=== PATIENT | female | born 1965 | race Caucasian/White ===

== ENCOUNTER 2021-07-05 12:46 | Inpatient (IN) | payer OTHER ==
[2021-07-05] MEDS ORDERED: AMIODARONE IN DEXTROSE,ISO-OSM 360 MG/200 ML BAG IV ONE (12:55)
[2021-07-05 13:13] LABS: Absolute Lymphocytes (CBC) 2.4 K/uL (0.7-4.9); Hematocrit 38.7 % (36.0-45.0); Lymphocytes % 34.4 % (15.3-44.8); MPV 7.8 fL (7.6-11.3); RBC Red Blood Cell Count 4.05 M/uL (3.86-4.86)
[2021-07-05 13:14] LABS: Protime INR 0.91
[2021-07-05 13:35] LABS: Albumin 3.9 g/dL (3.4-5.0); Bilirubin Direct 0.1 mg/dL (0-0.2); Bilirubin Total 0.5 mg/dL (0.2-1.0); Magnesium 2.2 mg/dL (1.8-2.4); Protein, Total 7.9 g/dL (6.4-8.2)
[2021-07-05 13:36] LABS: Thyroid Stimulating Hormone 4.1 uIU/mL (0.360-3.740)
--- NOTE | 2021-07-05 13:36 | RAD REPORT ---
EXAM DESCRIPTION: RAD - Chest Single View - 07/05/2021 1:32 pm CLINICAL HISTORY: CHEST PAIN COMPARISON: CHEST SINGLE VIEW dated 02/19/2015 FINDINGS: Lines: None. Lungs: No evidence of edema or pneumonia. Pleural: No significant pleural effusions or pneumothorax. Cardiac: The heart size is within normal limits. Bones: No acute fractures. Other: IMPRESSION: No acute cardiopulmonary disease.
--- NOTE | 2021-07-05 14:21 | RAD REPORT ---
EXAM DESCRIPTION: CT - Chest For Pe Angio - 07/05/2021 2:13 pm CLINICAL HISTORY: CHEST PAIN COMPARISON: CTANGIO CHEST FOR PE dated 02/19/2015 FINDINGS: Chest Wall: No suspicious thyroid nodules or pathologic lymphadenopathy. Lungs: No acute abnormality. Pleura: No significant effusions or pneumothorax. Mediastinum/chad: No pathologic lymphadenopathy. Pulmonary arteries/Aorta: No filling defect identified. No aortic aneurysm. Heart: No significant pericardial effusion. Normal heart size. Upper abdomen: Cholecystectomy . Bones: No acute abnormality. All CT scans are performed using dose optimization technique as appropriate and may include automated exposure control or mA/KV adjustment according to patient size. IMPRESSION: Negative for pulmonary embolism. No other acute findings are present within the chest.
[2021-07-05] MEDS ORDERED: NA CHLORIDE 0.9% 1,000 ML IV SCH ×2 (15:00→18:16)
[2021-07-05] MEDS ORDERED: AMIODARONE HCL 900 MG in Dextrose 5%-Water 482 ML IV SCH (15:00)
--- NOTE | 2021-07-05 15:12 | ER ---
Nurse's Notes [facility] Name: Marilyn Harden Age: 55 yrs Sex: Female : 1965 Arrival Date: 07/05/2021 Time: 12:50 Bed 3 Private MD: Diagnosis: Ventricular tachycardia;Cardiac arrhythmia, unspecified Presentation: 07/05 13:01 Chief complaint: Patient states: Patient states she was sent to us from Dr. Wells's ap3 office for runs of v-tach. Patient denies pain at this time, however she reports shortness of breath. 13:01 Coronavirus screen: At this time, the client does not indicate any symptoms associated ap3 with coronavirus-19. Ebola Screen: No symptoms or risks identified at this time. Initial Sepsis Screen: Does the patient meet any 2 criteria? No. Patient's initial sepsis screen is negative. Does the patient have a suspected source of infection? No. Patient's initial sepsis screen is negative. Risk Assessment: Do you want to hurt yourself or someone else? Patient reports no desire to harm self or others. Onset of symptoms was July 05, 2021. 13:01 Method Of Arrival: Ambulatory ap3 13:01 Acuity: SHUN 2 ap3 Triage Assessment: 13:01 General: Appears distressed, Behavior is anxious. Pain: Denies pain. Neuro: Level of ap3 Consciousness is awake, alert, obeys commands, Oriented to person, place, time, situation, Appropriate for age Speech is normal. Cardiovascular: Reports shortness of breath, Denies chest pain. Cardiovascular: Rhythm is reported V-Tach from cardiologists office. EKG completed at the bedside-shown to provider. Respiratory: Airway is patent Respiratory effort is even, unlabored, Respiratory pattern is regular, symmetrical. 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 - Social history:: Smoking status: Patient denies any tobacco usage or history of. Screenin:54 Abuse screen: Denies threats or abuse. Nutritional screening: No deficits noted. ap3 Tuberculosis screening: No symptoms or risk factors identified. Fall Risk Fall in past 12 months (25 points). Secondary diagnosis (15 points) periods of VTach. Assessment: 13:25 Reassessment: 7 beats of VTach noted via bedside monitor at 1324. ap3 14:15 Reassessment: Patient and/or family updated on plan of care and expected duration. Pain ap3 level reassessed. Patient is alert, oriented x 3, equal unlabored respirations, skin warm/dry/pink. patients is now at the bedside. 14:22 Reassessment: 64 beats of VTach noted via bedside monitor. Provider notified and came ap3 to bedside. Patient placed on defibrillator pads and on ECG machine. Patient denies chest pain at this time, but states she feels like she is having hot flash feelings without the warmth. Vital Signs: 13:01 BP 134 / 90; Pulse 74; Pulse Ox 100% ; Weight 64.86 kg; ap3 14:17 BP 129 / 88; Pulse 64; Pulse Ox 100% ; Height 5 ft. 2 in. (157.48 cm); ap3 14:47 BP 128 / 78; Pulse 58; Pulse Ox 100% on R/A; ap3 14:54 BP 118 / 68; Pulse 57; Pulse Ox 100% ; ap3 15:55 BP 116 / 63; Pulse 58; Temp 97.8(TE); Pulse Ox 100% ; ap3 14:17 Body Mass Index 26.15 (64.86 kg, 157.48 cm) ap3 ED Course: 12:50 Patient arrived in ED. kz 12:51 Zenia [facility]orano [facility]NP-C [facility]. kb 12:51 Jayson Christianson DO is Attending Physician. kb 13:01 EKG completed in triage. Results shown to MD. ap3 13:19 Triage completed. ap3 13:31 XRAY Chest (1 view) In Process Unspecified. EDMS 13:32 Maria E Jacobo, RENEE is Primary Nurse. ap3 13:55 Arm band placed on right wrist. ap3 13:55 Patient has correct armband on for positive identification. Placed in gown. Bed in low ap3 position. Call light in reach. Side rails up X2. Adult w/ patient. electronic device monitor on. Pulse ox on. NIBP on. Door closed. Noise minimized. 14:13 CT Chest For PE Angio In Process Unspecified. EDMS 15:12 Isaiah Francis MD is Hospitalizing Provider. kb 15:54 No provider procedures requiring assistance completed. Patient admitted, IV remains in ap3 place. Administered Medications: 13:11 Drug: amiodarone 150 mg Volume: 100 ml; Route: IVPB; Infused Over: 10 mins; Site: right ap3 antecubital; 13:21 Follow up: IV Status: Completed infusion ap3 13:24 Drug: amiodarone 900 mg, D5W 500 ml {Note: started at 1321.} Route: IVPB; Rate: 1 ap3 mg/min; Site: right antecubital; 15:55 Follow up: IV Status: Infusion continued upon admission ap3 Outcome: 15:12 Decision to Hospitalize by Provider. kb 15:54 Admitted to ICU accompanied by nurse, accompanied by tech, family with patient, via ap3 stretcher, room 8, on monitor, with chart, Report called to Carlee 15:54 Condition: good 15:54 Discharge instructions given to patient, family, Instructed on the need for admit. 16:16 Patient left the ED. vg1 Signatures: Dispatcher [employer] EDMS Zenia Zamorano, MELODY LION-Maria E Peña RN RN ap3 Margret Farr RN RN vg1 Lissy Torres Corrections: (The following items were deleted from the chart) 13:29 13:24 amiodarone 900 mg, D5W 500 ml IVPB at 1 mg/min in right antecubital ap3 ap3 14:47 14:24 Reassessment: Patient and/or family updated on plan of care and expected ap3 duration. Pain level reassessed. Patient is alert, oriented x 3, equal unlabored respirations, skin warm/dry/pink. patients is now at the bedside ap3
--- NOTE | 2021-07-05 15:12 | EDPHYS ---
Physician Documentation [facility] Name: Marilyn Harden Age: 55 yrs Sex: Female : 1965 Arrival Date: 07/05/2021 Time: 12:50 Bed 3 Private MD: ED Physician Jayson Christianson HPI: 07/05 16:17 This 55 yrs old Female presents to ER via Ambulatory with complaints of Quill Fixer kb advised to be seen. 16:17 Pt reports she went to Dr Wells's office for a follow up and he sent her here. Pt kb denies any chest pain or palpitations. States she has shortness of breath that has been ongoing since she had COVID in May, but nothing new. . Onset: The symptoms/episode began/occurred today. The patient has not experienced similar symptoms in the past. The patient has been recently seen by a physician: Dr. Wells earlier today, with similar presenting complaints, and was sent to the [facility] Emergency Department for further evaluation. Dr Wells called prior to pt's arrival requesting cardiac workup, TSH, CT chest PE and amiodarone drip due to frequent PVCs and runs of V Tach in office. . 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 - Social history:: Smoking status: Patient denies any tobacco usage or history of. ROS: 14:29 Constitutional: Negative for fever, chills, and weight loss. kb 14:29 All other systems are negative. Exam: 16:17 Constitutional: This is a well developed, well nourished patient who is awake, alert, kb and in no acute distress. Head/Face: Normocephalic, atraumatic. ENT: Moist Mucous membranes Cardiovascular: Regular rate and rhythm with a normal S1 and S2. No gallops, murmurs, or rubs. No pulse deficits. Respiratory: Respirations even and unlabored. No increased work of breathing. Talking in full sentences Abdomen/GI: Soft, non-tender. No distention Skin: Warm, dry with normal turgor. Normal color. MS/ Extremity: Pulses equal, no cyanosis. Neurovascular intact. Full, normal range of motion. Neuro: Awake and alert, GCS 15, oriented to person, place, time, and situation. Moves all extremities. Normal gait. Psych: Awake, alert, with orientation to person, place and time. Behavior, mood, and affect are within normal limits. Vital Signs: 13:01 BP 134 / 90; Pulse 74; Pulse Ox 100% ; Weight 64.86 kg; ap3 14:17 BP 129 / 88; Pulse 64; Pulse Ox 100% ; Height 5 ft. 2 in. (157.48 cm); ap3 14:47 BP 128 / 78; Pulse 58; Pulse Ox 100% on R/A; ap3 14:54 BP 118 / 68; Pulse 57; Pulse Ox 100% ; ap3 15:55 BP 116 / 63; Pulse 58; Temp 97.8(TE); Pulse Ox 100% ; ap3 14:17 Body Mass Index 26.15 (64.86 kg, 157.48 cm) ap3 MDM: 12:53 Patient medically screened. kb 14:28 Data reviewed: vital signs, nurses notes. Data interpreted: Pulse oximetry: on room air kb is 100 %. Interpretation: normal. Counseling: I had a detailed discussion with the patient and/or guardian regarding: the historical points, exam findings, and any diagnostic results supporting the discharge/admit diagnosis, lab results, radiology results, the need for further work-up and treatment in the hospital. 14:34 ED course: 55-year-old female presented from 's office for runs of ventricular ms3 tachycardia and frequent PVCs. On arrival patient is alert and oriented x4, no apparent distress, nontoxic, ambulatory in emergency department. Heart rate and rhythm are regular without murmurs rubs or gallops. Lungs are clear to all station bilaterally. Abdomen is nontender to palpation with bowel sounds present all 4 quadrants. Skin is dry without diaphoresis. While in the emergency department patient experienced run of ventricular tachycardia while on amiodarone drip. Prior to arrival into room 3 ventricular tachycardia resolved. We will continue to closely monitor patient.. 07/05 12:52 Order name: Basic Metabolic Panel kb 07/05 12:52 Order name: CBC with Diff; Complete Time: 13:20 kb 07/05 12:52 Order name: LFT's kb 07/05 12:52 Order name: Magnesium; Complete Time: 14:03 kb 07/05 12:52 Order name: NT PRO-BNP; Complete Time: 14:03 kb 07/05 12:52 Order name: PT-INR; Complete Time: 13:20 kb 07/05 12:52 Order name: Troponin HS; Complete Time: 14:03 kb 07/05 12:52 Order name: TSH; Complete Time: 14:03 kb 07/05 12:52 Order name: Basic Metabolic Panel; Complete Time: 14:03 EDMS 07/05 12:52 Order name: COVID-19 SARS RT PCR (Document "Date of Onset" if Symptomatic); Complete kb Time: 14:15 07/05 12:52 Order name: Liver (Hepatic) Function; Complete Time: 14:03 EDMS 07/05 13:37 Order name: T4 Free; Complete Time: 14:03 EDMS 07/05 14:37 Order name: Comprehensive Metabolic Panel EDMS 07/05 14:37 Order name: Comprehensive Metabolic Panel EDMS 07/05 12:52 Order name: XRAY Chest (1 view); Complete Time: 13:41 kb 07/05 12:52 Order name: CT Chest For PE Angio; Complete Time: 14:24 kb 07/05 14:37 Order name: Lipid Profile EDMS 07/05 14:37 Order name: Lipid Profile EDMS 07/05 14:37 Order name: Magnesium EDMS 07/05 14:37 Order name: Magnesium EDMS 07/05 14:37 Order name: NT PRO-BNP EDMS 07/05 14:37 Order name: NT PRO-BNP EDMS 07/05 14:37 Order name: Phosphorus EDMS 07/05 14:37 Order name: Phosphorus EDMS 07/05 14:37 Order name: CBC with Automated Diff EDMS 07/05 14:37 Order name: CBC with Automated Diff EDMS 07/05 14:37 Order name: T4 Free EDMS 07/05 14:37 Order name: T4 Free EDMS 07/05 14:37 Order name: Thyroid Stimulating Hormone EDMS 07/05 14:37 Order name: Thyroid Stimulating Hormone EDMS 07/05 12:52 Order name: EKG; Complete Time: 12:52 kb 07/05 12:52 Order name: Cardiac monitoring; Complete Time: 13:16 kb 07/05 12:52 Order name: EKG - Nurse/Tech; Complete Time: 13:16 kb 07/05 12:52 Order name: IV Saline Lock; Complete Time: 13:16 kb 07/05 12:52 Order name: Labs collected and sent; Complete Time: 13:16 kb 07/05 12:52 Order name: O2 Per Protocol; Complete Time: 13:16 kb 07/05 12:52 Order name: O2 Sat Monitoring; Complete Time: 13:16 kb 07/05 14:37 Order name: CONS Physician Consult EDDE 07/05 14:37 Order name: Heart Healthy EDMS 07/05 14:37 Order name: Echo with Doppler EDMS 07/05 14:37 Order name: Echo with Doppler EDMS Administered Medications: 13:11 Drug: amiodarone 150 mg Volume: 100 ml; Route: IVPB; Infused Over: 10 mins; Site: right ap3 antecubital; 13:21 Follow up: IV Status: Completed infusion ap3 13:24 Drug: amiodarone 900 mg, D5W 500 ml {Note: started at 1321.} Route: IVPB; Rate: 1 ap3 mg/min; Site: right antecubital; 15:55 Follow up: IV Status: Infusion continued upon admission ap3 Disposition: 20:23 Co-signature as Attending Physician, Jayson Christianson DO I agree with the assessment and ms3 plan of care. PA/EQUINE MANAGER's history reviewed, patient interviewed, and examined. HPI: See my note My personal exam of patient reveals: see my note embedded in WILFREDO note Attestation: The patient's history, exam findings, diagnostics, and a summary of any interventions or procedures was reviewed in detail with Zenia OLIVER. Disposition Summary: 07/05/21 15:12 Hospitalization Ordered Hospitalization Status: Inpatient Admission kb Provider: Isaiah Francis Condition: Stable kb Problem: new kb Symptoms: are unchanged kb Bed/Room Type: Standard kb Location: Intensive Care Unit(07/05/21 15:26) dw Room Assignment: 8-(07/05/21 15:26) dw Diagnosis - Ventricular tachycardia kb - Cardiac arrhythmia, unspecified kb Forms: - Medication Reconciliation Form kb - SBAR form kb Critical care time excluding procedures: 20:23 Critical care time: Bedside Care: 40 minutes, Consultation: 10 minutes. Total time: 50 ms3 minutes Signatures: Dispatcher [employer] Zenia Lockhart, MELODY LION-Maddison Perrin RN RN Maria E Adams RN RN ap3 Jayson Christianson DO DO ms3 Corrections: (The following items were deleted from the chart) 15: 15:12 Telemetry/MedSurg (Inpatient) kb 15: 15:12 kb dw
[2021-07-05 17:16] VITALS: BMI 26.3
[2021-07-05 17:17] VITALS: O2SAT 100
[2021-07-05] MEDS: ACETAMINOPHEN 500 MG TAB PO PRN (18:00)
[2021-07-05] MEDS: ENOXAPARIN 40 MG/0.4 ML SQ SCH (18:01)
[2021-07-06 04:39] LABS: Absolute Lymphocytes (CBC) 2.3 K/uL (0.7-4.9); Hematocrit 34.4 % (36.0-45.0); Lymphocytes % 36.3 % (15.3-44.8); MPV 7.9 fL (7.6-11.3); RBC Red Blood Cell Count 3.59 M/uL (3.86-4.86)
[2021-07-06 05:03] LABS: Albumin 3.5 g/dL (3.4-5.0); Bilirubin Total 0.8 mg/dL (0.2-1.0); Magnesium 2.1 mg/dL (1.8-2.4); Potassium 3.7 mmol/L (3.5-5.1); Protein, Total 7.1 g/dL (6.4-8.2)
[2021-07-06 05:07] LABS: Thyroid Stimulating Hormone 7.8 uIU/mL (0.360-3.740)
[2021-07-06] MEDS: ENOXAPARIN 40 MG/0.4 ML SQ SCH (09:00)
[2021-07-06] MEDS ORDERED: HEPA 1000U/500MLS 2,000 UNIT/1,000 ML BAG IV ONE (09:25)
[2021-07-06] MEDS ORDERED: LIDOCAINE 1% 20 ML MDV ONE (09:25)
[2021-07-06] MEDS ORDERED: VERAPAMIL HCL 10 MG/4 ML VIAL IV ONE (09:40)
[2021-07-06] MEDS ORDERED: HEPARIN 5000 UNIT/ML 1 ML VIAL ONE (09:40)
[2021-07-06] MEDS ORDERED: HEPARIN 10,000 UNIT/10 ML VIAL IV ONE (09:41)
[2021-07-06] MEDS ORDERED: ATROPINE SULF 1 MG/10 ML SYR IV ONE (09:41)
[2021-07-06] MEDS ORDERED: AMIODARONE HCL 150 MG/3 ML INJ IV ONE (09:44)
[2021-07-06] MEDS ORDERED: FENTANYL CITR 100 MCG/2 ML ONE (10:29)
[2021-07-06] MEDS ORDERED: MIDAZOLAM HCL 2 MG/2 ML INJ ONE (10:30)
[2021-07-06] MEDS ORDERED: TICAGRELOR 90 MG TABLET PO ONE (10:32)
[2021-07-06] MEDS ORDERED: CLOPIDOGREL 75 MG TABLET ONE (10:32)
[2021-07-06] MEDS ORDERED: ASPIRIN 325 MG TAB ONE (10:32)
[2021-07-06] MEDS ORDERED: NA CHLORIDE 0.9% 500 ML ONE (10:39)
--- NOTE | 2021-07-06 11:24 | CON ---
Date of Consultation: 07/06/2021 Reason For Consultation: Ventricular tachycardia. History Of Present Illness: A 55-year-old female who has been having long runs of nonsustained ventr icular tachycardia, been feeling weak with shortness of breath and having chest pain. Stress test as an outpatient was negative, however, patient had significant burden of PVCs more than 20% with multi ple countless runs of ventricular tachycardia, directed her to be admitted to the hospital. We will start her on amiodarone. She has been on amiodarone since yesterday. PVCs have disappeared and no fu rther episodes of ventricular tachycardia. The patient is having some heartburn today. Past Medical History: None. Medications: Currently, is on amiodarone drip. Allergies: NO KNOWN DRUG ALLERGIES. Family History: No premature coronary artery disease or cancer. Social History: Does not smoke or drink. Does not use any drugs. Review of Systems: All systems reviewed and they were negative except as mentioned in HPI. Physical Examination: Vital Signs: Reviewed. Head and Neck: Pupils are equal, reactive to light. Intact eye movements. No JVD. No cervical lym phadenopathy. Neck: Supple. Thyroid is not enlarged. Lungs: Clear to auscultation bilaterally. No rhonchi, rales, or crackles. No accessory muscle use. Heart: Regular rate and rhythm. No extra heart sounds. Abdomen: Soft, nontender. Bowel sounds positive. No organomegaly. No masses or hernia. No rigidi ty or rebound. Extremities: No edema, clubbing, cyanosis. Intact pulses. Skin: No rashes. Neurologic: Alert, awake, oriented x3. No acute focal deficits appreciated. Investigations: Labs were reviewed. Assessment And Recommendation: 1.Ventricular tachycardia and insignificant burden of premature ventricular contraction. Ejection f raction is normal in echo. We will plan for coronary angiogram today and once the IV amiodarone load is finished, to switch to oral 200 mg twice a day and if coronary angiogram is clean, then patient c an be released to follow up as an outpatient. Further Recommendation: We will follow post cardiac ca theterization today. SR/MODL Voice ID: [id number] Report ID: [id number]
--- NOTE | 2021-07-06 11:32 | OP ---
Date of Procedure: 07/06/2021 Surgeon: KASSIDY GARCIA Procedure Performed: Selective coronary angiogram. Indication: Multiple episodes of ventricular tachycardia, the access right radial artery 6-Montserratian cl osed with TR band. Complications: None. Bleeding: Less than 10 mL. Anesthesia: Total sedation time was 15 minutes. Description Of Procedure: After risks, benefits, and alternatives were explained, patient agreed to proceed and signed informed consent. Patient was brought in into the cardiac catheterization laborat ory, prepped and draped in usual sterile fashion. Then, we accessed right radial artery using pediat dandy micropuncture kit and placed a 6-Montserratian slender sheath and took 5-Montserratian Woodworth 4.0 catheter into the aortic root, engaged left main. Then, right coronary artery took standard views. Then, we remov ed the catheter and the sheath, placed TR band with good hemostasis. Fentanyl and Versed were given in incremental doses to achieve adequate amount of sedation throughout the procedure. Findings: 1.Left main, large and normal. 2.LAD, large, normal, normal diagonal branches. 3.Left circumflex, moderate size and normal, normal OM branches. 4.RCA; large dominant and normal. Conclusion: Normal coronary arteries. Plan: To finish IV load of amiodarone for 24 hours and then switch to oral 200 mg twice a day and ca n be released after that to follow up with me in the office in 1 week. SR/MODL Voice ID: [id number] Report ID: [id number]
[2021-07-06] MEDS: ACETAMINOPHEN 500 MG TAB PO PRN (12:12)
--- NOTE | 2021-07-06 13:12 | EKG ---
Test Date: 2021-07-05 Test Time: 12:57:00 Channeler Outsole: ALP MEASUREMENT RESULTS: Intervals: Rate: 77 RI: 146 QRSD: 74 QT: 404 QTc: 457 [place]: P: 64 RI: 146 QRS: 49 T: 70 INTERPRETIVE STATEMENTS: Sinus rhythm with sinus arrhythmia with occasional premature ventricular complexes Biatrial enlargement Abnormal ECG Compared to ECG 02/19/2015 14:04:31 Ventricular premature complex(es) now present Atrial abnormality now present Sinus bradycardia no longer present Electronically Signed On 07-06-21 13:08:18 SALESPERSON MEN'S FURNISHINGS by José Mao
[2021-07-06] MEDS ORDERED: AMIODARONE HCL 200 MG TAB PO ONE (13:33)
--- NOTE | 2021-07-06 15:16 | P.HP ---
Certification for Inpatient Patient admitted to: Inpatient With expected LOS: >2 Midnights Patient will require the following post-hospital care: None Practitioner: I am a practitioner with admitting privileges, knowledge of patient current condition, hospital course, and medical plan of care. Services: Services provided to patient in accordance with Admission requirements found in Title 42 Section 412.3 of the Code of Federal Regulations Patient History Date of Service: 07/05/21 Reason for admission: Tachyarrhythmia/CAD History of Present Illness: Patient is a 55-year-old female who came to the hospital with being diagnosed with ventricular tachycardia. She was having some chest discomfort, so she came into the ER for further evaluation. In the ER, her high sensitivity troponin was negative. She was admitted to the hospital for further evaluation. She was started on IV amiodarone. She will be admitted to the ICU on an amiodarone drip and will get cardiac evaluation. Allergies No Known Allergies Allergy (Verified 12/12/14 13:49) Home Medications: Zolpidem Tartrate [Ambien] 5 mg PO BEDTIME 12/12/14 Acetaminophen [Tylenol] 2 tab PO BID PRN 07/05/21 - Past Medical/Surgical History Has patient received pneumonia vaccine in the past: No Diabetic: No -: endometriosis -: COVID PNA Jun 19 -: Insomnia -: [id number] -: partial hysterectomy 2009 -: LEFT wrist - with pins and plates -: Cholecystectomy 2012 - Family History Mother Medical History: Cancer Notes: heart arrhytmia - Social History Smoking Status: Never smoker Alcohol use: Yes CD- Drugs: No Caffeine use: Yes Place of Residence: Home Review of Systems 10-point ROS is otherwise unremarkable Physical Examination - Vital Signs Temperature: 97.5 F Blood Pressure: 110/57 Pulse: 62 Respirations: 16 Pulse Ox (%): 98 - Physical Exam General: Alert, In no apparent distress, Oriented x3 HEENT: Atraumatic, PERRLA, Mucous membr. moist/pink, EOMI, Sclerae nonicteric Neck: Supple, 2+ carotid pulse no bruit, No LAD, Without JVD or thyroid abnormality Respiratory: Clear to auscultation bilaterally, Normal air movement Cardiovascular: Regular rate/rhythm, Normal S1 S2, No murmurs Gastrointestinal: Normal bowel sounds, Soft and benign, Non-distended, No tenderness Musculoskeletal: No clubbing, No swelling, No tenderness Integumentary: No rashes Neurological: Normal gait, Normal speech, Normal strength at 5/5 x4 extr, Normal tone, Sensation intact, Cranial nerves 3-12 intact, Normal affect Lymphatics: No axilla or inguinal lymphadenopathy Assessment & Plan - Problems (Diagnosis) (1) Ventricular tachyarrhythmia Current Visit: Yes Status: Acute (2) Chest pain Current Visit: Yes Status: Acute - Plan -High-sensitivity troponin negative. Cardiac catheterization in a.m. because of ventricular tachyarrhythmia -Cardiology consultation -Continue with amiodarone drip -Repeat EKG -Lipid profile -Supervisor [employer] regarding modifying risk for cardiac disease Discharge Plan: Home Plan to discharge in: Greater than 2 days - Advance Directives Does patient have a Living Will: No Does patient have a Durable POA for Healthcare: Yes - Code Status/Comfort Care Code Status Assessed: Yes Code Status: Full Code Critical Care: No Time Spent Managing PTS Care (In Minutes): 45
[2021-07-06 17:16] VITALS: BP 108/31
[2021-07-06 17:17] VITALS: TEMP 98.2
[2021-07-06] MEDS ORDERED: AMIODARONE HCL 200 MG TAB PO SCH (21:00)
== END 2021-07-06 17:45 | disposition home or self-care (01) | DRG 287 ==
LOC: ER 12:46 → ERHOLD 14:34 → 3RD-ICU 15:58
PROVIDERS: ADMIT Hospitalist; ATTEND Hospitalist
PROC: B201YZZ Plain Radiography of Multiple Coronary Arteries using Other Contrast (ICD-10-PCS; principal; 2021-07-06)
DX: I47.2 Ventricular tachycardia (principal); R07.9 Chest pain, unspecified; Z86.16 Personal history of COVID-19; Z20.822 Contact with and (suspected) exposure to COVID-19
CPT/HCPCS: 36415; 71045; 71275; 80048; 80053; 80061; 80076; 83735; 83880; 84100; 84439; 84443; 84484; 85025; 85610; 93005; 93454; 96365; 96366; 99285; C1893; J0282; J1644; J1650; J2250; J3010; J7030; J7040; J7060; Q9967; U0003

== ENCOUNTER 2023-03-13 09:30 | Day surgery (SDC) | payer OTHER ==
[2023-03-10 15:15] LABS: Absolute Lymphocytes (CBC) 2.2 K/uL (0.7-4.9); Hematocrit 36.8 % (36.0-45.0); Lymphocytes % 29.6 % (15.3-44.8); MPV 7.4 fL (7.6-11.3); Platelets 275 thou/uL (152-406); RBC Red Blood Cell Count 3.92 M/uL (3.86-4.86)
--- NOTE | 2023-03-10 15:15 | RAD REPORT ---
EXAM DESCRIPTION: RAD - Chest Pa And Lat (2 Views) - 03/10/2023 3:07 pm CLINICAL HISTORY: Pre op pending loop recorder removal Chest pain. COMPARISON: <Comparisons> FINDINGS: The lungs are clear. The heart is normal in size. No displaced fractures. Loop recorder no chau. IMPRESSION: No acute or concerning finding suspected.
[2023-03-10 15:17] LABS: Protime INR 0.88
--- NOTE | 2023-03-12 17:28 | EKG ---
Test Date: 2023-03-10 Test Time: 15:43:22 Flight Dispatcher: ANDIE MEASUREMENT RESULTS: Intervals: Rate: 62 SD: 148 QRSD: 74 QT: 408 QTc: 414 [place]: P: 53 SD: 148 QRS: 14 T: 46 INTERPRETIVE STATEMENTS: Normal sinus rhythm Normal ECG Compared to ECG 07/05/2021 12:57:00 Sinus arrhythmia no longer present Ventricular premature complex(es) no longer present Atrial abnormality no longer present Electronically Signed On 03-12-23 17:22:59 PEST CONTROL APPLICATOR by Dariel Wells
[2023-03-13] MEDS ORDERED: NA CHLORIDE 0.9% 500 ML ONE (09:53)
[2023-03-13] MEDS ORDERED: CEFAZOLIN 1 GM in NA CHLORIDE 0.9% 50 ML IVPB ONE (11:00)
[2023-03-13] MEDS ORDERED: LIDOCAINE 1% 20 ML MDV ONE (11:56)
[2023-03-13] MEDS ORDERED: HEPA 1000U/500MLS 1,000 UNIT/500 ML BAG IV ONE (12:06)
[2023-03-13] MEDS ORDERED: MIDAZOLAM HCL 2 MG/2 ML INJ ONE (12:14)
[2023-03-13] MEDS ORDERED: FENTANYL CITR 100 MCG/2 ML ONE (12:14)
--- NOTE | 2023-03-13 13:02 | OP ---
Surgeon: KASSIDY GARCIA Procedure Performed: Loop recorder removal. Description Of Procedure: After risks, benefits, alternatives were explained, the patient agreed to procedure and signed informed consent. The patient was brought into the cardiac catheterization labo ratory, prepped and draped in the usual sterile fashion. We gave a proper incremental dose of fentan yl and Versed to achieve adequate moderate sedation and then the loop recorder location was identifie d using fluoroscopy and then using local lidocaine 20 cc, the local anesthesia was applied and then a surgical cut was formed on top of the loop recorder and then it was removed successfully and the loo p recorder was intact and then I placed 6 sutures to close the wound successfully. No complications and repeat fluoroscopy confirmed no foreign body is present anymore. Patient was sent to Recovery in a stable condition. Conclusion: Successful loop recorder removal. /LADONNA Voice ID: [id number] Report ID: [id number]
[2023-03-13 15:01] VITALS: BP 100/61; O2SAT 100
== END 2023-03-13 13:45 | disposition home or self-care (01) ==
LOC: CCL 09:30
PROVIDERS: ATTEND Internal Medicine
DX: Z45.09 Encounter for adjustment and management of other cardiac device (principal)
CPT/HCPCS: 93005; 85025; 80048; 36415; 85610; 85730; 71046; 33286; C1893; J2001; J2250; J3010; J7040; J0690